=== PATIENT | female | born 1950 | race Caucasian/White ===

== ENCOUNTER → 2020-10-02 | Outpatient (CLI) | payer OTHER | LOC: MRI 08:52 → LAB 16:01 | PROVIDERS: ATTEND Internal Medicine | DX: N63.10 Unspecified lump in the right breast, unspecified quadrant (principal); R92.8 Other abnormal and inconclusive findings on diagnostic imaging of breast ==

== ENCOUNTER → 2020-10-10 | Outpatient (CLI) | payer OTHER ==
--- NOTE | 2020-10-14 10:07 | PATH ---
[facility] [address] [place] [address] PATHOLOGY RPT PROCEDURE Name: IRINAVERÓNICAHannah GRANDA Room #: REG KHADRA [place].#: [id number] Admission: 10/10/20 Date of : 54 Discharge: Report #: [id number] Path Case #: [id number] L[facility] Accession Number: [id number] . 01 Material submitted: . breast - RT BREAST MASS. Modifiers: right . 01 Clinical history: . RT BREAST MASS . 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 LBQ 10/13/2020 1158 Local . 02 Comment: Specimen type: Needle core biopsy Tumor site: Right breast 3:00 3 cm from nipple Tumor quantitation: 1.0 cm in greatest dimension Histologic type: Invasive ductal carcinoma Histologic grade: [place] grade 2/3 Tubules, nuclei and mitoses: 3, 2 and 1, respectively LVSI: Not identified Microcalcifications: Not identified Markers: ER, AK, Her2/delmi and Ki-67 Block: A2 . Properly controlled p63 and smooth muscle myosin immunohistochemical stains are performed on block A1 and show no intact myoepithelial layer supporting the diagnosis rendered. . Co-review: Dr. Zaida Mohr . Findings of this case were discussed with Dr. Reji Hood at 12:20 pm on 10/13/2020 and again updated in the morning of 10/14/20 . (IUV/db; 10/13/2020) . 02 Electronically signed: . Viviane Caballero MD, Pathologist NPI- [id number] . 01 Gross description: . Received in formalin labeled "Verónica Arevalo and right breast 3:00- 3cm FN". Received are multiple yellow-brown fibroadipose breast tissue core fragments ranging from 0.3-1.4 cm in length and 0.1-0.2 cm in diameter. [address] [address] PATHOLOGY RPT PROCEDURE Name: VERÓNICA AREVALO JESUS ALBERTO Room #: REG CLI Bhavik#: [id number] Admission: 10/10/20 Date of : 54 Discharge: Report #: [id number] Path Case #: [id number] The specimen is entirely submitted in cassettes A1 and A2. The specimen was collected 10/10/20 at 1040 hours and placed into formalin at 1040 hours. The specimen will be in formalin more than 6 hours and less than 72 hours.(J; 10/10/2020) BLJ/BLJ 10/10/2020 1730 Local . 02 Pathologist provided ICD-10: C50.911 . 02 CPT . 024087, A79624, M99947 Specimen Comment: A courtesy copy of this report has been sent to [phone], [phone] Specimen Comment: [phone], Specimen Comment: Report sent to ,DR PHILLIPS / DR ALMAZAN Performed at: [address], [place] [id number] MD Larry Reese MD Phone: [phone] Performed at: [address] [id number] MD Viviane Caballero MD Phone: [phone]
== END | disposition home or self-care (01) ==
LOC: ULTRA 09:16
PROVIDERS: ATTEND Surgery
DX: C50.911 Malignant neoplasm of unspecified site of right female breast (principal); R92.1 Mammographic calcification found on diagnostic imaging of breast; Z88.0 Allergy status to penicillin; Z88.8 Allergy status to other drugs, medicaments and biological substances

== ENCOUNTER 2020-10-21 09:11 | Observation (INO) | payer OTHER ==
[~2020-10-21] VITALS: Ht 162.6 cm; Wt 95.3 kg
--- NOTE | ~2020-10-21 | O ---
[facility]havik [place] [address] OPERATIVE REPORT Name: HUI AREVALO Room #: 433-I [facility] Bhavik#: [id number] Admission: 10/21/20 Attend Phys: Reji Hood MD Discharge: Date of : 54 Report #: [id number] THIS REPORT FOR: cc: Darien Sylvester MD, Stanley P. MD Chu,Reji Cai MD ~ DOC #: [id number] cc: MD Reji Ramires MD PREOPERATIVE DIAGNOSES: 1. Right breast cancer, multifocal. 2. Dense left breast with calcified lesion. POSTOPERATIVE DIAGNOSES: 1. Right breast cancer, multifocal. 2. Dense left breast with calcified lesion. PROCEDURES PERFORMED: 1. Right mastectomy with sentinel node biopsy. 2. Left total mastectomy. ANESTHESIA: General. SURGEON: Reji Hood MD. COMPLICATIONS: None. BLOOD LOSS: 100 mL. DESCRIPTION OF PROCEDURE: With the patient under general anesthesia, a Neoprobe was used. I heard very little activity in the axilla. I injected 2 mL of Lymphazurin into the subareolar area. The right breast was then prepped and draped in sterile fashion. Timeout was performed. Preoperative IV antibiotic was administered. The patient had a moderate bruising. There is a superficial mass at 3 o'clock and a deeper mass slightly superior. This whole area was included in the mastectomy incision. The ellipse was drawn. A skin flap was created. Hemostasis obtained with clips and cautery. The inferior skin flap was then incised. The inferior skin flap was then lifted off the breast. The breast was then taken off the chest wall. There was no gross tumor invasion to the chest wall. With the breast lying laterally, the 10-second count of the node had 350 counts. The node was removed from the surrounding axilla. This was sent as sentinel node. Adjacent to it, there was a second lymph node. This was also removed as a nonsentinel axillary node. Frozen section was performed of the sentinel node and did not have any metastatic cells in it. The breast [address] [address] OPERATIVE REPORT Name: SARATH AREVALOHannah HENRIQUEZJESUS ALBERTO Room #: 433-I [facility]..#: [id number] Admission: 10/21/20 Attend Phys: Reji Hood MD Discharge: Date of : 54 Report #: [id number] was then taken off the rest of the way. There is a superficial lesion at 8 o'clock. This was marked for the pathologist. This is what was felt to be a fibroadenoma on ultrasound and also MRI. A moist tape was then placed in the chest wall. The area was covered. The left mastectomy was then performed. Ellipse was drawn around the nipple areolar complex including approximately half of the breast. The superior skin flap was created without difficulty. The inferior skin flap was then created. The breast was then dissected off the chest wall. Laterally, the breast was from the subcu fat and the chest wall. Clips and also 3-0 Vicryl tie was used for hemostasis. Cautery was also used. Irrigation was performed. A #19 Kishor drain was left underneath the superior flap. The subcutaneous tissue was reapproximated with 2-0 PDS. Skin was then closed with 3-0 PDS. Dermabond was applied. The right chest was also then irrigated and further hemostasis obtained with cautery and clips. A #19 Kishor drain was left on the right side. Drain was sutured with 2-0 silk suture. Subcu was closed with running 2-0 PDS. Skin was closed with a running 3-0 PDS subcuticular fashion. Dermabond was applied. Fluffy gauze was applied. The patient was awakened and taken to recovery room, tolerated the procedure well. Reji Hood MD PYC/PIERRE By: 1041 1155 Reji Hood MD /nt
[~2020-10-21 09:11] MED LIST: ADULT ONE DAI200 MCG PO; JARDIANCE25 MG PO; LISINOPRIL5 MG PO; NOVOLOG FL100 UNIT/M SUBQ; VITAMIN C250 M1 PO; VITAMIN C500 M2 PO; VITAMIN D325 MC3 PO; VITAMIN D325 MC4 PO; ZINC50 M2 PO
[2020-10-21 10:42] VITALS: BP 120/60
--- NOTE | 2020-10-21 11:31 | EKG ---
[address] [place] [employer] [address] ELECTROCARDIOGRAM REPORT Name: HUI AREVALO Room #: [address] [place] [address] M.R.#: [id number] Admission: 10/21/20 Attend Phys: Reji Hood MD Discharge: Date of : 54 Report #: [id number] [facility] Test Date: 2020-10-21 Test Time: 09:49:43 Pat Name: HUI AREVALO Department: Room: [facility] 2 Gender: F [employer]: LEONOR : 1950 Requested By: Reji Hood Order Number: [id number] : Lavelle Saucedo Measurements Intervals [place] Rate: 90 P: 76 VA: 145 QRS: 35 QRSD: 97 T: 33 QT: 372 QTc: 455 Interpretive Statements Sinus rhythm Low voltage, precordial leads No previous ECG available for comparison Electronically Signed On 10-21-2020 11:31:07 CDT by Lavelle Saucedo [email or web address] <ELECTRONICALLY SIGNED> By: Lavelle Saucedo MD, [facility] 10/21/20 1131 0949 0949 Lavelle Saucedo MD, FACC /EPI
[2020-10-21 18:00] VITALS: BP 137/66
[2020-10-21 19:00] VITALS: BP 113/56
--- NOTE | 2020-10-21 19:29 | NUR ---
Pt transferred from OR. She was AXOX4. Very concerned about her insulin level being to high at 140 and causing blindness. She stated her pain level was down from 20 to 9. Started running 1/2 NS @ 80 ML/HR. Dressing was C/D/I. Bilateral SIRIA drains are draining red fluid. VSS reported off to shift superintendent.
[2020-10-22 02:14] LABS: HEMATOCRIT 34.7 % (37.0-47.0); HEMOGLOBIN 11.3 gm/dL (12.0-15.0); MCH 28.6 pg (26.0-34.0); MCHC 32.6 g/dL (28.0-37.0); MCV 87.7 fL (80.0-100.0); RBC 3.96 mil/uL (4.20-5.00); RDW 14.9 % (10.5-14.5); WBC 12.8 thou/uL (4.0-11.0)
[2020-10-22 02:25] LABS: CALCIUM 8.3 mg/dL (8.5-10.1); CREATININE 1.1 mg/dL (0.6-1.0); POTASSIUM 4.9 mmol/L (3.5-5.1)
[2020-10-22 03:30] VITALS: BP 142/77
--- NOTE | 2020-10-22 04:05 | NUR ---
ASSUMED PT CARE AT 1900.PT WAS VERY CONCERNED ABOUT HER BLOOD GLUCOSE LEVEL.WAS 140 AT SHIFT CHANGE AND LATER WAS 228 WHEN PT CHECKED AFTER EATING.PT GAVE HERSELF HER HOME INSULIN SHE HAD IN HER ROOM BEFORE THE NURSE GOT TO HER ROOM.EDUCATION GIVEN PT VOICED UNDERSTANDING.PT LATER CALLED THE NURSE AT ABOUT 0110 AND REQUESTED FOR HER BG TO BE RECHECKED.BG WAS 225 AND PT INSISTED ON GETTING ADDITIONAL INSULIN.DR COUGHLIN WAS NOTIFIED ,ORDER NOTED TO FOLLOW THE SLIDING SCALE AND GIVE HER 12 UNITS OF INSULIN.PT REQUESTED TO TAKE 6 UNITS INSTEAD FOR FEAR OF HER BG DROPPING.MEDICATION ADMINISTERED PER PT'S REQUEST.PT UP WITH ASSIST TO THE BR,UNSTABLE ON HER FEET.PT ENCOURAGED TO USE THE CALL LIGHT FOR ASSISTANCE.MARCO A SIRIA DRAIN EMPTIED INTERMITTENTLY ANF RECORDED.ROSEMARYG C/D/I.ABD BINDER IN PLACE.CALL LIGHT WITHIN REACH.
[2020-10-22 07:16] VITALS: BP 126/60
--- NOTE | 2020-10-22 09:43 | NUR ---
ASSUMED PT CARE THIS AM. PT IS ALERT & ORIENTED X4 BUT CAN BE VERY NEEDY AND DEMANDING. PT IS UP WITH ASSIST X1 WITH GAITBLET AND WALKER. PT HAS IV SITE ON L HAND RUNNING D5 1/2 @ 80ML/HR. PT IS ON ROOM AIR. PT IS ACCUCHECK ACHS. PT HAS 2 SIRIA DRAIN AND L SIDE IS DRAINING MORE THAN R SIDE. PT HAS SCD ON. NO C/O OF NAUSEA, VOMITING AND PAIN THIS AM. CALLED DR ABOUT HOME MEDICATION PER PT REQUEST. AWAITING FOR PHARMACY TO VERIFY AND SEND THE MEDICATION. INFORMED AND EDUCATED PT ABOUT MONITORING BG AND BG MEDICATION. PT TOLERATED MEDICATION AND DIET WELL. PT ON THE BED, BED ON THE LOWEST POSITION, SIDE RAILS UP, CALL LIGHT WITHIN REACH. WILL CONTINUE TO MONITOR PT. FOLLOW POC.
--- NOTE | 2020-10-22 10:52 | NUR ---
ASSESSMENT: CM REVIEWED CHART AND MET WITH PATIENT AND HER SPOUSE AT THE BEDSIDE. PT IS ALERT AND ORIENTED X4. PT IS S/P RIGHT MASTECTOMY WITH BIOPSY. PT REPORTS LIVING IN A HOUSE WITH HER . PT REPORTS HER HOME HAS ABOUT 12 STEPS WITH HANDRAILS TO THE MAIN LEVEL AND SHE HAS A STAIR LIFT TO UPPER LEVEL. 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 PT REPORTS SHE IS INDEPENDENT WITH ADLS AND AMBULATION. CM DISCUSSED CONSULT FOR . PT STATES SHE IS HESITANT SHE DOES NOT LIKE ANYONE IN HER HOUSE BUT STATES SHE IS AGREEABLE. PT HAS NO PREFERENCE OF HH AGENCY. CM NOTIFIED LIASON AT [facility] WHO REPORTS SHE WILL SEE PATIENT. PLANS OF LIKELY DISCHARGE HOME WITH [facility].
[2020-10-22 10:54] VITALS: BP 26/60
[2020-10-22] MEDS ORDERED: HYDROCODON-ACE1 EAC7 PO (12:10)
== END 2020-10-22 14:00 | disposition home or self-care (01) ==
LOC: OR 09:11 → TBA 09:14 → OR 10:14 → 4S 17:40 → OR 20:08 → 4S 20:09
PROVIDERS: ADMIT Surgery; ATTEND Surgery
DX: C50.911 Malignant neoplasm of unspecified site of right female breast (principal); N64.89 Other specified disorders of breast; E11.9 Type 2 diabetes mellitus without complications; Z79.84 Long term (current) use of oral hypoglycemic drugs; Z79.899 Other long term (current) drug therapy
CPT/HCPCS: 50010; 50101; 50386; 50403; 51301; 52287; 54118; 56522; 56524; 56525; 56526; 56668; 58585; 58710; 62110; 62900; 70005